=== PATIENT | female | born 2000 | race Caucasian/White ===

== ENCOUNTER → 2018-06-20 08:44 | Outpatient (REF) | payer BC, SELFPAY ==
[2018-06-23 15:17] LABS: Chlamydia Result Negative; GC Result Negative; Specimen Description URINE
== END ==
LOC: LBN 08:44
PROVIDERS: PCP Pediatrics; Visit Provider Nurse Practitioner Women's Health
DX: Z11.3 Encounter for screening for infections with a predominantly sexual mode of transmission (principal)
CPT/HCPCS: 87491; 87591

== ENCOUNTER 2018-10-17 18:06 | Outpatient (REF) | payer BC, SELFPAY ==
[2018-10-20 14:24] LABS: Chlamydia Result Negative; GC Result Negative
== END 2018-10-17 18:26 ==
LOC: LBN 18:06
PROVIDERS: PCP Pediatrics; Visit Provider Nurse Practitioner Women's Health
DX: Z11.3 Encounter for screening for infections with a predominantly sexual mode of transmission (principal)
CPT/HCPCS: 87491; 87591

== ENCOUNTER 2020-03-23 13:50 | Outpatient (REF) | payer BC, SELFPAY ==
--- NOTE | 2020-03-23 13:20 | PAPFT_PTH ---
PATIENT: Mackenzie Navarrete LOC: [facility] U#:[id number] AGE/SX: 19/F ROOM: RE03/23/[address]: Fabiana Cantor NP : 2000 BED: DIS: 03/23/2020 SPEC #: [id number] RECD: 03/23/20 15:34 STATUS: HOLLIE HICKS #: [id number] JEFF: 03/23/20 13:[address]: Fabiana Cantor NP DEPT: [facility] Cytology RECD BY: Emilee Bee ENTERED: 03/23/20 15:35 SP TYPE: PAPFT OT DR: Jaylin Local Tissues: 1 - CX/ENDOCX FOR PAP SMEARS Procedures: PAP THIN PREP/[facility] Screening Comments: [id number] (CHLAMYDIA/GC) (UNSATISFACTORY FOR EVALUATION)
[2020-03-24 15:07] LABS: Chlamydia Result Negative (Negative); GC Result Negative (Negative)
== END 2020-03-23 14:10 ==
LOC: LBN 13:50
PROVIDERS: Visit Provider Nurse Practitioner Women's Health
DX: Z11.3 Encounter for screening for infections with a predominantly sexual mode of transmission (principal); Z12.4 Encounter for screening for malignant neoplasm of cervix; R87.615 Unsatisfactory cytologic smear of cervix
CPT/HCPCS: 87491; 87591; 88142

== ENCOUNTER 2020-05-20 03:30 | Outpatient (CLI) | payer BC, SELFPAY ==
[2020-05-20 15:15] LABS: Abs Immature Grans 0.02 k/cumm (0.0-0.09); Absolute Basophil Count 0.02 k/cumm (0.0-0.2); Absolute Eosinophil Count 0.07 k/cumm (0.0-0.7); Absolute Lymphocyte Count 2.07 k/cumm (1.2-3.4); Absolute Monocyte Count 0.63 k/cumm (0.11-0.7); Absolute Neutrophil Count 4.17 k/cumm (1.2-6.7); Basophils % 0.3; HCT 38.6 % (36.0-46.0); HGB 12.9 g/dL (12.0-15.5); Immature Grans % 0.3 %; Lymphocytes % 29.7; Mean Corp. HGB Concentration 33.4 g/dL (32.0-36.0); Mean Corpuscular Volume 92.8 fL (80-95); Mean Platelet Volume 9.9 fL (8.0-11.0); Neutrophils % 59.7; Platelet Count 235 x1000/uL (130-400); RBC 4.16 m/cumm (4.00-5.20); RBC Distribution Width 11.5 % (11.7-14.6); White Blood Cell Count 6.98 k/cumm (4.4-10.8)
[2020-05-20 16:58] LABS: ALT 22 U/L (14-59); AST 24 U/L (15-37); Albumin 3.9 g/dL (3.4-5.0); Alkaline Phosphatase 79 U/L (46-116); BUN 11 mg/dL (7-18); Bilirubin, Total 0.4 mg/dL (0.2-1.0); CREATININE 0.85 mg/dL (0.55-1.02); Calcium 8.8 mg/dL (8.5-10.1); Chloride 103 mmol/L (98-107); Glucose 102 mg/dL (74-106); Potassium 4.1 mmol/L (3.5-5.1); Sodium 138 mmol/L (136-145); TSH (W/Ref FT4) 1.24 uIU/mL (0.36-3.74); Total Protein 6.8 g/dL (6.4-8.2)
== END 2020-05-20 03:50 ==
PROVIDERS: PCP Pediatrics; Visit Provider Registered Nurse Psychiatric/Mental Health
DX: F31.32 Bipolar disorder, current episode depressed, moderate (principal)
CPT/HCPCS: 36415; 80053; 84443; 85025

== ENCOUNTER 2021-05-31 14:56 | Outpatient (REF) | payer BC, SELFPAY ==
--- NOTE | 2021-05-31 14:00 | PAPFT_PTH ---
PATIENT: Mackenzie Navarrete LOC: [facility] U#:[id number] AGE/SX: 21/F ROOM: RE05/31/[address]: Nevin Jefferson : 2000 BED: DIS: 05/31/2021 SPEC #: [id number] RECD: 06/01/21 12:56 STATUS: HOLLIE HICKS #: [id number] JEFF: 05/31/21 14:[address]: Nevin Jefferson DEPT: [facility] Cytology RECD BY: Emilee Bee ENTERED: 06/01/21 12:56 SP TYPE: PAPFT OTHR DR: Rodolfo Campos MD Tissues: 1 - CX/ENDOCX FOR PAP SMEARS Procedures: PAP THIN PREP/[facility] Screening Comments: [id number] (CHLAMYDIA/GC)
[2021-06-02 19:38] LABS: Chlamydia Result Negative (Negative); GC Result Negative (Negative)
== END 2021-05-31 14:57 | disposition home or self-care (01) ==
LOC: NCHCN 14:56
PROVIDERS: PCP Pediatrics; Visit Provider Family Medicine
DX: Z00.00 Encounter for general adult medical examination without abnormal findings (principal); Z11.3 Encounter for screening for infections with a predominantly sexual mode of transmission; Z12.4 Encounter for screening for malignant neoplasm of cervix; Z01.419 Encounter for gynecological examination (general) (routine) without abnormal findings
CPT/HCPCS: 87491; 87591; 88142

== ENCOUNTER 2022-11-27 20:50 | Outpatient (REF) | payer BC, SELFPAY ==
[2022-11-27 21:30] LABS: ALT 18 U/L (14-59); AST 19 U/L (15-37); Calculated LDL 59 mg/dL (<100); Cholesterol 158 mg/dL (<200); HDL Cholesterol 92 mg/dL (40-60); Triglyceride 39 mg/dL (<150)
[2022-11-30 09:51] LABS: Lipoprotein (a) 94 nmol/L (<75)
== END 2022-11-27 20:51 | disposition home or self-care (01) ==
LOC: NCHCN 20:50
PROVIDERS: Visit Provider Nurse Practitioner Family
DX: Z84.81 Family history of carrier of genetic disease (principal)
CPT/HCPCS: 80061; 83695; 84450; 84460

== ENCOUNTER 2022-11-30 18:38 | Outpatient (REF) | payer BC, SELFPAY ==
--- NOTE | 2022-11-30 14:10 | SKI_PTH ---
PATIENT: Mackenzie Navarrete LOC: [facility] U#:[id number] AGE/SX: 22/F ROOM: RE11/30/[address]: Lore Robert : 2000 BED: DIS: 11/30/2022 SPEC #: [id number] RECD: 12/03/22 12:48 STATUS: HOLLIE REGeovanni #: [id number] JEFF: 11/30/22 14:[address]: Lore Robert DEPT: Surgical Specimen RECD BY: Emilee Bee Tissues: 1 - SKIN BIOPSY(SHAVE/PUNCH) Procedures: SKIN LEVEL 4 SPECIAL STAIN 1 Comments: [id number]
== END 2022-11-30 18:39 | disposition home or self-care (01) ==
LOC: NCHCN 18:38
PROVIDERS: PCP Nurse Practitioner Family; Visit Provider Nurse Practitioner Family
DX: L98.8 Other specified disorders of the skin and subcutaneous tissue; L92.3 Foreign body granuloma of the skin and subcutaneous tissue
CPT/HCPCS: 88305; 88312

== ENCOUNTER 2023-05-29 04:25 | Outpatient (CLI) | payer BC, SELFPAY ==
[2023-05-31 14:03] LABS: TB Interpretation Negative (Negative); TB2 Ag minus Nil 0.01 IU/mL
== END 2023-05-29 04:26 | disposition home or self-care (01) ==
LOC: LBO 04:26
PROVIDERS: PCP Nurse Practitioner Family; Visit Provider Nurse Practitioner Family
DX: Z02.0 Encounter for examination for admission to educational institution (principal)
CPT/HCPCS: 36415; 86480